=== PATIENT | female | born 1995 | race Asian ===

== ENCOUNTER 2024-04-06 16:55 | Inpatient (IN) ==
[2024-04-06] MEDS ORDERED: LIDOCAINE 1% LOCAL 20 ML VIAL INFIL PRN (17:02)
[2024-04-06] MEDS ORDERED: OXYTOCIN 30 UNITS/NSS 30 UNITS/500 ML BAG IV PRN (17:02)
[2024-04-06 17:49] LABS: Hematocrit (blood only) 36.1 % (37.0-47.0); Hemoglobin 12.8 g/dl (12.0-16.0); Mean Corpuscular Hemoglobin 30.7 pg (25.0-34.0); Mean Corpuscular Hgb Conc 35.5 g/dL (32.0-36.0); Mean Corpuscular Volume 86.6 fL (80.0-100.0); Mean Platelet Volume 10.8 fL (9.4-12.4); Platelet Count 208 K/uL (130-400); RDW Coefficient of Variation 14.2 % (11.5-14.5); RDW Standard Deviation 44.1 fL (36.4-46.3); Red Blood Count 4.17 M/uL (4.20-5.40); White Blood Count 7.52 K/ul (4.8-10.8)
[2024-04-06] MEDS: LACTATED RINGER'S 1,000 ML IV PRN (18:00)
--- NOTE | 2024-04-06 19:40 | History & Physical Report ---
Date of Service April 06, 2024 Assessment & Plan (1) SROM (spontaneous rupture of membranes): (2) Gestational diabetes mellitus (GDM) affecting , antepartum: (3) Fibroid uterus: Plan 28 yo G1 at 39 3/7 wga presents w/ srom VSS Fetus cat 1 Labor - will start with cervical ripening given only 1cm with cytotec A1GDM - q4bg gbs neg epidural prn Admission and Anticipated Discharge Date Admission Date: April 06, 2024 History of Present Illness Chief Complaint: SROM Primary Care Provider: NO PCP 28yo G1 at 39 3/7 wga presents after dx w/ SROM. Lost mucous plug around 7am and then leaking consistently starting around 10-11am. Seen in office and rom confirmed, 1cm at that time. irreg ctx, not painful PNI: A1GDM Ant SS fibroid Past rn heart hx: G1 regular cycles denies hx stis 2023 neg cyto Allergies Allergy/AdvReac Type Severity Reaction Status Date / Time kiwi Allergy Swelling Verified 04/06/24 17:40 of Lip/Tongue/Throat shrimp Allergy Hives Verified 04/06/24 17:40 cactus pear Allergy Swelling Uncoded 04/06/24 17:40 of Lip/Tongue/Throat Home Medications Medication Instructions Recorded Confirmed Type 21-iron fu-folic acid 1 tab PO DAILY 09/04/23 04/06/24 History [ Complete] acetone (urine) test (Ketone Urine #50 ea 11/17/23 04/06/24 Rx Test strips) blood sugar diagnostic (OneTouch #150 ea 11/17/23 04/06/24 Rx Verio test strips) blood-glucose meter (OneTouch #1 ea 11/17/23 04/06/24 Rx Verio Reflect Meter) lancets 33 gauge (OneTouch Delica #150 ea 11/17/23 04/06/24 Rx Plus Lancet) Patient History Medical History (Updated 04/06/24 @ 19:39 by Chiquita Levy MD) Varicella vaccination Surgical History (Updated 09/04/23 @ 11:01 by Tory Villanueva) S/P wisdom tooth extraction Family History (Updated 09/04/23 @ 10:53 by Tory Villanueva) Mother Hypertension Denies family history of Ovarian cancer Breast cancer Colorectal cancer Social History (Updated 09/04/23 @ 10:54 by Tory Villanueva) Smoking Status: Never smoker Do You Dip or Chew Tobacco: No; Hx Alcohol Use: No Hx Substance Use: No Preferred Language: French Communication Ability: Effective 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: No Beliefs That Will Affect Care: None marital status: marital status details: Larry Lees (29) [phone] Current Living Situation: Spouse Current Living Situation Comment: lives with spouse, guinea pig current occupational status: employed 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 Feels Safe at Home: Yes Safety Concerns: Feels Safe At This Time Assistive Devices: None Physical Exam Genitourinary: OB Exam Abdomen: + vertex (confirmed by bsus) Manual OB Exam: + cervical dilation 1 cm, + cervical effacement 50% and + station -2 OB Exam Monitor Tracing: + external FHT monitor used, + external uterine monitor used (irreg ctx, >10 min) and + category I (145/mod/+accel/-decel) Results & Data Vital Signs (Past 12 Hours) Vital Signs Temp Pulse Resp BP 04/06/24 18:12 73 04/06/24 18:12 147/75 H 04/06/24 17:37 97.5 F L 20 04/06/24 17:25 90 137/87 Laboratory Results OB Labs: Blood Type A Positive 09/08/23 Antibody Screen NEGATIVE 09/08/23 Hemoglobin 11.8 g/dl (12.0-16.0) L 01/20/24 Hematocrit 35.0 % (37.0-47.0) L 01/20/24 Mean Corpuscular Volume 87.4 fL (80.0-100.0) 09/08/23 Platelet Count 325 K/uL (130-400) 09/08/23 Rubella IgG Antibody Immune (Immune) 09/08/23 Rapid Plasma Reagin Nonreactive (Nonreactive) 09/08/23 Hepatitis B Surface Antigen. NON-REACTIVE (NON-REACTIVE) 09/08/23 Hepatitis C Antibody (EIA) NON-REACTIVE (NON-REACTIVE) 09/08/23 HIV (1&2) Ag and Ab Confirmation NON-REACTIVE (NON-REACTIVE) 09/08/23 Glucose 1 Hour 50 gm Load 136 mg/dl (70-130) H 10/26/23 OB Optional Labs: Chlamydia trachomatis RNA Not Detected (NotDetected) 09/08/23 Neisseria gonorrhoeae RNA Not Detected (NotDetected) 09/08/23 low risk cfdna neg cf/sma gbs neg Diagnostic Findings 03/14 EFW 69%, AC 68%, DVP wnl, ant plac Coding Level of Care Code None Diagnoses SROM (spontaneous rupture of membranes) Gestational diabetes mellitus (GDM) affecting , antepartum O24.419 Fibroid uterus D25.9
[2024-04-06] MEDS: miSOPROStoL 25 MCG TAB PV ONE (20:10)
--- NOTE | 2024-04-07 00:05 | Labor Progress Brief Note ---
Date of Service April 07, 2024 Subjective starting to feel more ctx but not very painful Assessment & Plan (1) SROM (spontaneous rupture of membranes): (2) Gestational diabetes mellitus (GDM) affecting , antepartum: (3) Fibroid uterus: Plan 28 yo G1 at 39 3/7 wga presents w/ srom VSS Fetus cat 1 Labor - cervix more anterior and slightly more dilated, will start pit. ?if I feel forebag as still only 2, once more dilated may be able to rupture forebag if there A1GDM - q4bg gbs neg epidural prn Admission and Anticipated Discharge Date Admission Date: April 06, 2024 Physical Exam Genitourinary: Manual OB Exam: + cervical dilation 2 cm, + cervical effacement 50% and + station -2 OB Exam Monitor Tracing: + external FHT monitor used, + external uterine monitor used (q6-8) and + category I (110/mod/+accel/-decel) Results & Data Vital Signs (Past 12 Hours) Vital Signs Temp Pulse Resp BP 04/06/24 21:38 63 04/06/24 21:38 133/87 04/06/24 21:37 63 04/06/24 21:37 146/93 H 04/06/24 21:36 65 04/06/24 21:36 158/100 H 04/06/24 21:15 20 04/06/24 21:15 98.1 F 20 04/06/24 19:10 18 04/06/24 19:10 98.2 F 18 04/06/24 18:12 73 04/06/24 18:12 147/75 H 04/06/24 17:37 97.5 F L 20 04/06/24 17:25 90 137/87 Coding Level of Care Code None Diagnoses SROM (spontaneous rupture of membranes) Gestational diabetes mellitus (GDM) affecting , antepartum O24.419 Fibroid uterus D25.9
[2024-04-07] MEDS: OXYTOCIN 30 UNITS/NSS 30 UNITS/500 ML BAG IV PRN (00:15)
[2024-04-07] MEDS ORDERED: ROPIVACAINE 0.5% PF 5 MG/ML 20 ML VIAL EPI PRN (03:37)
[2024-04-07] MEDS ORDERED: NALOXONE HCL 0.4 MG/1 ML VIAL/CARP IV PRN ×2 (03:37→23:33)
[2024-04-07] MEDS ORDERED: SODIUM CHLORIDE 0.9% PF INJ 10 ML VIAL EPI PRN (03:37)
[2024-04-07] MEDS ORDERED: NALOXONE HCL 1 MG in SODIUM CHLORIDE 0.9% 1,000 ML IV PRN ×2 (03:37→23:33)
[2024-04-07] MEDS ORDERED: NALBUPHINE HCL INJ 10 MG/ML AMP IV PRN ×2 (03:37→23:33)
[2024-04-07] MEDS ORDERED: fentaNYL citrate PF 100 MCG/2 ML VIAL EPI PRN (03:37)
[2024-04-07] MEDS ORDERED: LIDOCAINE 2% MPF LOCAL 5 ML VIAL EPI PRN (03:37)
[2024-04-07] MEDS ORDERED: ePHEDrine sulfate 50 MG/ML AMP IV PRN ×2 (03:37→23:33)
[2024-04-07] MEDS ORDERED: ONDANSETRON INJ 2 MG/ML 2 ML VIAL IV PRN ×2 (03:37→23:33)
[2024-04-07] MEDS ORDERED: diphenhydrAMINE 50 MG/ML VIAL IV PRN ×2 (03:37→23:33)
[2024-04-07] MEDS ORDERED: BUPIVACAINE 0.25% PF 30 ML VIAL EPI PRN (03:37)
--- NOTE | 2024-04-07 03:37 | Anesthesiology Consultation ---
Date of Service April 07, 2024 Assessment & Plan ASA ASA2 Proposed Anesthesia Anesthesia Type: Labor Epidural Risk / Benefits Reviewed With: PT / POA / Parent / Guardian, Accepts Plan and Informed Consent Obtained History Height/Weight Height: 5 ft Weight: 85.275 kg Allergies Allergy/AdvReac Type Severity Reaction Status Date / Time kiwi Allergy Swelling Verified 04/06/24 17:40 of Lip/Tongue/Throat shrimp Allergy Hives Verified 04/06/24 17:40 cactus pear Allergy Swelling Uncoded 04/06/24 17:40 of Lip/Tongue/Throat Medications Home Medications Medication Instructions Recorded Confirmed Last Taken 21-iron fu-folic acid 1 tab PO DAILY 09/04/23 04/06/24 04/06/24 12:30 [ Complete] acetone (urine) test (Ketone Urine #50 ea 11/17/23 04/06/24 Unknown Test strips) blood sugar diagnostic (OneTouch #150 ea 11/17/23 04/06/24 Unknown Verio test strips) blood-glucose meter (OneTouch #1 ea 11/17/23 04/06/24 Unknown Verio Reflect Meter) lancets 33 gauge (OneTouch Delica #150 ea 11/17/23 04/06/24 Unknown Plus Lancet) Active Medications Generic Name Dose Route Start Last Admin Trade Name Freq PRN Reason Stop Dose Admin Oxytocin 30 units in 500 mls @ 6 mls/hr 04/06/24 17:02 04/07/24 02:30 Pitocin 30 Units/Nss IV 04/08/24 17:01 0.36 units/hr .Q24H PRN 6 mls/hr Labor Induction/Augmentation Titration Protocol 0.36 UNITS/HR Lactated Ringer's 1,000 mls @ 125 mls/hr 04/06/24 17:02 04/07/24 01:01 Lr IV 04/08/24 17:01 125 mls/hr .Q8H PRN Administration L&D Protocol Protocol Past Medical History Medical History (Updated 04/06/24 @ 19:39 by Chiquita Levy MD) Varicella vaccination Exercise / Class Metabolic Activity II 4-5 Yardwork/Stairs/Walk up hill Past Family History Family History (Updated 09/04/23 @ 10:53 by Tory Villanueva) Mother Hypertension Denies family history of Ovarian cancer Breast cancer Colorectal cancer Past Surgical History Surgical History (Updated 09/04/23 @ 11:01 by Tory Villanueva) S/P wisdom tooth extraction Past Anesthesia History No Hx of Anesthesia Complications and No Family Hx of Anesthesia Complications History of PONV No Hx of PONV and No Hx of Motion Sickness Social History Smoking Status: Never smoker Do You Dip or Chew Tobacco: No Hx Alcohol Use: No Hx Substance Use: No Review of Systems denies fever/cough/ colds/ chest pain/ SOB/ JANI denies JANI Physical Exam Vital Signs Last Vital Signs Temp 36.8 C 04/07/24 01:01 Pulse 64 04/07/24 03:35 Resp 20 04/07/24 01:01 BP 171/97 H 04/07/24 03:35 Pulse Ox 100 04/07/24 03:33 ENMT Mouth: no TMJ abnormality and no dentition abnormality Thyromental Distance: > or= 3.5 Finger Breadths Mallampati Class: II Neck neck extension not limited Respiratory normal respiratory effort; no respiratory distress Auscultation: lungs clear to auscultation bilaterally Cardiovascular Rate/Rhythm: regular rate and regular rhythm Neurologic moves all extremities Psychiatric Orientation: alert and oriented x 3 Testing Laboratory Results 04/06/24 17:32 Blood Type A Positive 04/06/24 17:32 Antibody Screen NEGATIVE 04/06/24 17:32 04/07/24 04/06/24 01:17 21:16 POC Glucose 91 93
[2024-04-07] MEDS: BUPIVACAINE 0.25% PF 30 ML VIAL ONE (04:01)
[2024-04-07] MEDS: fentaNYL citrate PF 100 MCG/2 ML VIAL ONE (04:02)
[2024-04-07] MEDS: SODIUM CHLORIDE 0.9% PF INJ 10 ML VIAL ONE (04:03)
[2024-04-07] MEDS: fentANYL 2 MCG/ML BUPIVacaine 0.125%-NSS 100ML BAG ONE (04:05)
[2024-04-07] MEDS: LIDOCAINE 2%/EPINEPHRINE 1:200,000 20 ML PF ONE (04:10)
[2024-04-07] MEDS: ePHEDrine sulfate 50 MG/ML AMP ONE (04:10)
[2024-04-07] MEDS: SODIUM CHLORIDE 0.9% PF INJ 10 ML VIAL EPI STA (04:11)
[2024-04-07] MEDS: fentaNYL citrate PF 100 MCG/2 ML VIAL EPI STA (04:11)
[2024-04-07] MEDS: BUPIVACAINE 0.25% PF 30 ML VIAL EPI STA (04:11)
[2024-04-07] MEDS: LIDOCAINE 2%/EPINEPHRINE 1:200,000 20 ML PF EPI STA (04:11)
[2024-04-07 04:16] LABS: Creatinine Urine Random 142.1 mg/dl; Protein Creatinine Ratio Urine 0.4 (0-0.2); Total Protein Urine Random 58.2 mg/dl (0-11.9)
[2024-04-07 04:16] LABS: Albumin Globulin Ratio 1.2 (0.9-2); Albumin Level 3.3 gm/dl (3.4-5.0); BUN Creatinine Ratio 19.3 (10-20); Bilirubin,Total 0.3 mg/dl (0.2-1.0); Calcium 8.4 mg/dl (8.6-10.3); Creatinine Clr Calc Pharmacy 139.9 ml/min; Est GFR (African American) 144.2 ml/min; Est GFR (Non-African American) 124.4 ml/min; Globulin 2.7 gm/dl (2.5-4.0); Potassium 3.9 mmol/L (3.5-5.1)
--- NOTE | 2024-04-07 07:37 | Labor Progress Brief Note ---
Date of Service April 07, 2024 Subjective comfortable w/ epidural Assessment & Plan (1) SROM (spontaneous rupture of membranes): (2) Gestational diabetes mellitus (GDM) affecting , antepartum: (3) Fibroid uterus: Plan 28 yo G1 at 39 3/7 wga presents w/ srom Few mild ranges noted but asymptomatic, there is occ severe range in chart but nurse notes she was laying on cuff during these so not accurate. PET labs wnl, UPC was obtained but not a straight cath and already srom so not sure if falsely elevated- will recheck w/ straight cath. I think gHTN at minimum as mild ranges still occur when not in pain but intermittent Fetus cat 1 Labor - good progress, forebag noted and arom. Pit at 14. A1GDM - q4bg gbs neg epidural in place Admission and Anticipated Discharge Date Admission Date: April 06, 2024 Physical Exam Genitourinary: Manual OB Exam: + cervical dilation 5 cm, + cervical effacement 70%, + station and + amniotic fluid (arom forebag) OB Exam Monitor Tracing: + external FHT monitor used, + external uterine monitor used (q6-8) and + category II (140/mod/+accel/+early and intermit variable decel) Results & Data Vital Signs (Past 12 Hours) Vital Signs Temp Pulse Resp BP Pulse Ox 04/07/24 07:29 67 98 04/07/24 07:24 66 99 04/07/24 07:20 98.2 F 18 04/07/24 07:19 63 98 04/07/24 07:14 99 04/07/24 07:14 63 04/07/24 07:14 63 143/95 H 04/07/24 07:08 86 98 04/07/24 07:03 67 99 04/07/24 06:58 70 100 04/07/24 06:57 64 160/91 H 04/07/24 06:53 68 98 04/07/24 06:48 61 100 04/07/24 06:46 18 04/07/24 06:46 18 04/07/24 06:43 64 99 04/07/24 06:41 65 139/89 04/07/24 06:38 63 98 04/07/24 06:33 65 100 04/07/24 06:31 16 04/07/24 06:31 16 04/07/24 06:28 59 L 100 04/07/24 06:26 60 139/90 04/07/24 06:23 81 98 04/07/24 06:18 63 100 04/07/24 06:15 18 04/07/24 06:15 18 04/07/24 06:13 61 99 04/07/24 06:11 65 134/78 04/07/24 06:08 63 98 04/07/24 06:03 65 97 04/07/24 05:58 62 99 04/07/24 05:57 63 149/82 H 04/07/24 05:53 63 18 98 04/07/24 05:48 67 97 04/07/24 05:43 61 99 04/07/24 05:42 61 137/78 04/07/24 05:38 64 99 04/07/24 05:33 65 99 04/07/24 05:32 18 04/07/24 05:32 97.9 F 18 04/07/24 05:28 68 99 04/07/24 05:26 63 136/84 04/07/24 05:23 70 99 04/07/24 05:20 16 04/07/24 05:20 16 04/07/24 05:18 63 98 04/07/24 05:13 64 99 04/07/24 05:11 67 142/85 H 04/07/24 05:09 18 04/07/24 05:09 18 04/07/24 05:08 64 98 04/07/24 05:03 64 98 04/07/24 04:58 72 99 04/07/24 04:56 63 140/88 04/07/24 04:53 64 100 04/07/24 04:50 20 04/07/24 04:50 20 04/07/24 04:48 69 99 04/07/24 04:43 69 100 04/07/24 04:41 60 148/86 H 04/07/24 04:38 65 100 04/07/24 04:33 83 100 04/07/24 04:28 69 100 04/07/24 04:25 72 155/90 H 04/07/24 04:23 69 100 04/07/24 04:21 67 151/90 H 04/07/24 04:18 70 99 04/07/24 04:15 71 18 138/92 04/07/24 04:13 68 100 04/07/24 04:08 75 150/93 H 98 04/07/24 04:07 67 133/91 04/07/24 04:05 67 140/66 04/07/24 04:03 68 100 04/07/24 04:02 62 150/95 H 04/07/24 04:01 69 155/93 H 04/07/24 03:58 78 99 04/07/24 03:53 72 99 04/07/24 03:50 73 86 L 04/07/24 03:48 71 100 04/07/24 03:43 75 100 04/07/24 03:42 73 90 04/07/24 03:38 99 04/07/24 03:38 67 04/07/24 03:38 64 172/77 H 04/07/24 03:36 18 04/07/24 03:36 97.9 F 18 04/07/24 03:35 64 171/97 H 04/07/24 03:33 67 100 04/07/24 03:32 64 183/102 H 04/07/24 01:15 64 143/95 H 04/07/24 01:01 20 04/07/24 01:01 98.2 F 20 04/07/24 01:00 61 146/93 H 04/06/24 23:15 18 04/06/24 23:15 98.2 F 18 04/06/24 21:38 63 04/06/24 21:38 133/87 04/06/24 21:37 63 04/06/24 21:37 146/93 H 04/06/24 21:36 65 04/06/24 21:36 158/100 H 04/06/24 21:15 20 04/06/24 21:15 98.1 F 20 Coding Level of Care Code None Diagnoses SROM (spontaneous rupture of membranes) Gestational diabetes mellitus (GDM) affecting , antepartum O24.419 Fibroid uterus D25.9
[2024-04-07] MEDS: fentANYL 2 MCG/ML BUPIVacaine 0.125%-NSS 100ML BAG EPI PRN (10:16)
--- NOTE | 2024-04-07 12:06 | Obstetrical Progress Note ---
Date of Service April 07, 2024 Assessment & Plan (1) SROM (spontaneous rupture of membranes): (2) Gestational diabetes mellitus (GDM) affecting , antepartum: Plan making slow progress, fetus overall reassuring. NOting some heavier bleeding but not excessive and fetus tolerating. Continue current management. Monitor closely. Admission and Anticipated Discharge Date Admission Date: April 06, 2024 Subjective Patient noting contractions. Physical Exam Physical Exam: 8/100/-2, lots of bloody show and a smal l clot removed toco--q2min, pit at 14 efm--130s with mod variability, small accesl, occasional early appearing decel Results & Data Vital Signs (Past 12 Hours) Vital Signs Temp Pulse Resp BP Pulse Ox 04/07/24 11:59 69 99 04/07/24 11:54 71 100 04/07/24 11:49 69 99 04/07/24 11:44 71 99 04/07/24 11:39 70 98 04/07/24 11:37 63 153/86 H 04/07/24 11:34 70 99 04/07/24 11:29 73 99 04/07/24 11:24 68 100 04/07/24 11:23 71 162/100 H 04/07/24 11:19 69 100 04/07/24 11:14 71 100 04/07/24 11:09 68 100 04/07/24 11:08 70 159/97 H 04/07/24 11:04 66 100 04/07/24 10:59 79 99 04/07/24 10:55 65 154/84 H 04/07/24 10:54 65 99 04/07/24 10:49 68 99 04/07/24 10:44 67 100 04/07/24 10:39 70 155/84 H 99 04/07/24 10:34 70 100 04/07/24 10:30 18 04/07/24 10:30 18 04/07/24 10:29 71 99 04/07/24 10:24 64 99 04/07/24 10:23 67 137/86 04/07/24 10:19 69 99 04/07/24 10:14 65 99 04/07/24 10:09 62 98 04/07/24 10:08 61 142/81 H 04/07/24 10:04 69 99 04/07/24 10:00 36.6 C 04/07/24 09:59 67 98 04/07/24 09:54 99 04/07/24 09:54 65 04/07/24 09:54 65 137/81 04/07/24 09:49 66 98 04/07/24 09:44 66 99 04/07/24 09:39 68 99 04/07/24 09:38 69 141/84 H 04/07/24 09:34 69 99 04/07/24 09:30 18 04/07/24 09:30 18 04/07/24 09:29 69 100 04/07/24 09:24 99 04/07/24 09:24 74 04/07/24 09:24 71 140/93 04/07/24 09:19 68 99 04/07/24 09:14 70 100 04/07/24 09:09 70 176/100 H 98 04/07/24 09:04 69 99 04/07/24 08:59 73 99 04/07/24 08:54 66 100 04/07/24 08:53 66 169/94 H 04/07/24 08:49 66 98 04/07/24 08:44 65 99 04/07/24 08:39 70 99 04/07/24 08:34 80 98 04/07/24 08:29 72 98 04/07/24 08:24 75 98 04/07/24 08:23 67 144/94 H 04/07/24 08:19 68 95 04/07/24 08:14 66 96 04/07/24 08:09 97 04/07/24 08:09 66 04/07/24 08:09 65 142/87 H 04/07/24 08:04 62 97 04/07/24 08:00 18 04/07/24 08:00 18 04/07/24 07:59 61 99 04/07/24 07:54 64 97 04/07/24 07:53 59 L 139/84 04/07/24 07:49 61 96 04/07/24 07:44 62 98 04/07/24 07:39 98 04/07/24 07:39 62 04/07/24 07:39 62 151/87 H 04/07/24 07:34 62 99 04/07/24 07:29 67 98 04/07/24 07:24 66 99 04/07/24 07:20 36.8 C 18 04/07/24 07:19 63 98 04/07/24 07:14 18 04/07/24 07:14 36.7 C 18 04/07/24 07:14 99 04/07/24 07:14 63 04/07/24 07:14 63 143/95 H 04/07/24 07:08 86 98 04/07/24 07:03 67 99 04/07/24 06:58 70 100 04/07/24 06:57 64 160/91 H 04/07/24 06:53 68 98 04/07/24 06:48 61 100 04/07/24 06:46 18 04/07/24 06:46 18 04/07/24 06:43 64 99 04/07/24 06:41 65 139/89 04/07/24 06:38 63 98 04/07/24 06:33 65 100 04/07/24 06:31 16 04/07/24 06:31 16 04/07/24 06:28 59 L 100 04/07/24 06:26 60 139/90 04/07/24 06:23 81 98 04/07/24 06:18 63 100 04/07/24 06:15 18 04/07/24 06:15 18 04/07/24 06:13 61 99 04/07/24 06:11 65 134/78 04/07/24 06:08 63 98 04/07/24 06:03 65 97 04/07/24 05:58 62 99 04/07/24 05:57 63 149/82 H 04/07/24 05:53 63 18 98 04/07/24 05:48 67 97 04/07/24 05:43 61 99 04/07/24 05:42 61 137/78 04/07/24 05:38 64 99 04/07/24 05:33 65 99 04/07/24 05:32 18 04/07/24 05:32 36.6 C 18 04/07/24 05:28 68 99 04/07/24 05:26 63 136/84 04/07/24 05:23 70 99 04/07/24 05:20 16 04/07/24 05:20 16 04/07/24 05:18 63 98 04/07/24 05:13 64 99 04/07/24 05:11 67 142/85 H 04/07/24 05:09 18 04/07/24 05:09 18 04/07/24 05:08 64 98 04/07/24 05:03 64 98 04/07/24 04:58 72 99 04/07/24 04:56 63 140/88 04/07/24 04:53 64 100 04/07/24 04:50 20 04/07/24 04:50 20 04/07/24 04:48 69 99 04/07/24 04:43 69 100 04/07/24 04:41 60 148/86 H 04/07/24 04:38 65 100 04/07/24 04:33 83 100 04/07/24 04:28 69 100 04/07/24 04:25 72 155/90 H 04/07/24 04:23 69 100 04/07/24 04:21 67 151/90 H 04/07/24 04:18 70 99 04/07/24 04:15 71 18 138/92 04/07/24 04:13 68 100 04/07/24 04:08 75 150/93 H 98 04/07/24 04:07 67 133/91 04/07/24 04:05 67 140/66 04/07/24 04:03 68 100 04/07/24 04:02 62 150/95 H 04/07/24 04:01 69 155/93 H 04/07/24 03:58 78 99 04/07/24 03:53 72 99 04/07/24 03:50 73 86 L 04/07/24 03:48 71 100 04/07/24 03:43 75 100 04/07/24 03:42 73 90 04/07/24 03:38 99 04/07/24 03:38 67 04/07/24 03:38 64 172/77 H 04/07/24 03:36 18 04/07/24 03:36 36.6 C 18 04/07/24 03:35 64 171/97 H 04/07/24 03:33 67 100 04/07/24 03:32 64 183/102 H 04/07/24 01:15 64 143/95 H 04/07/24 01:01 20 04/07/24 01:01 36.8 C 20 04/07/24 01:00 61 146/93 H PG Care Time/CCT Total # of Minutes Spent Total Time Spent with Patient: Total time spent is greater than 50% in coordination of care (as documented) at patient's floor/unit and/or counseling patient: Coding Level of Care Code None Diagnoses SROM (spontaneous rupture of membranes) Gestational diabetes mellitus (GDM) affecting , antepartum O24.419
--- NOTE | 2024-04-07 14:01 | Labor Progress Brief Note ---
Date of Service April 07, 2024 Subjective Pretty comfortable with epidural. Assessment & Plan (1) SROM (spontaneous rupture of membranes): (2) Gestational diabetes mellitus (GDM) affecting , antepartum: Plan concern with lack of further dilation and no descent that we have a CPD issue. Will see how her contractions do at this point. fetus category one. Admission and Anticipated Discharge Date Admission Date: April 06, 2024 Physical Exam Physical Exam: 8-9/100/-2 baby not descending at all toco--q1-3 min, with pit at 14 iupc placed efm--130s with mod variability, accels present, occasional early noted Contractions on initial observation, look like they are going to be adequate. Results & Data Vital Signs (Past 12 Hours) Vital Signs Temp Pulse Resp BP Pulse Ox 04/07/24 13:54 74 98 04/07/24 13:49 79 100 04/07/24 13:44 77 99 04/07/24 13:39 73 100 04/07/24 13:34 68 99 04/07/24 13:29 66 99 04/07/24 13:24 79 100 04/07/24 13:23 59 L 130/81 04/07/24 13:19 60 98 04/07/24 13:14 60 98 04/07/24 13:09 67 98 04/07/24 13:08 57 L 149/72 H 04/07/24 13:04 65 98 04/07/24 12:59 59 L 98 04/07/24 12:55 71 142/86 H 04/07/24 12:54 76 100 04/07/24 12:49 67 100 04/07/24 12:44 68 100 04/07/24 12:39 99 04/07/24 12:39 67 04/07/24 12:39 62 152/85 H 04/07/24 12:34 71 99 04/07/24 12:29 74 100 04/07/24 12:24 75 138/91 99 04/07/24 12:19 71 99 04/07/24 12:14 69 100 04/07/24 12:09 66 150/92 H 99 04/07/24 12:04 69 100 04/07/24 11:59 69 99 04/07/24 11:54 71 100 04/07/24 11:49 69 99 04/07/24 11:44 71 99 04/07/24 11:39 70 98 04/07/24 11:37 63 153/86 H 04/07/24 11:34 70 99 04/07/24 11:29 73 99 04/07/24 11:24 68 100 04/07/24 11:23 71 162/100 H 04/07/24 11:19 69 100 04/07/24 11:14 71 100 04/07/24 11:09 68 100 04/07/24 11:08 70 159/97 H 04/07/24 11:04 66 100 04/07/24 10:59 79 99 04/07/24 10:55 65 154/84 H 04/07/24 10:54 65 99 04/07/24 10:49 68 99 04/07/24 10:44 67 100 04/07/24 10:39 70 155/84 H 99 04/07/24 10:34 70 100 04/07/24 10:30 18 04/07/24 10:30 18 04/07/24 10:29 71 99 04/07/24 10:24 64 99 04/07/24 10:23 67 137/86 04/07/24 10:19 69 99 04/07/24 10:14 65 99 04/07/24 10:09 62 98 04/07/24 10:08 61 142/81 H 04/07/24 10:04 69 99 04/07/24 10:00 36.6 C 04/07/24 09:59 67 98 04/07/24 09:54 99 04/07/24 09:54 65 04/07/24 09:54 65 137/81 04/07/24 09:49 66 98 04/07/24 09:44 66 99 04/07/24 09:39 68 99 04/07/24 09:38 69 141/84 H 04/07/24 09:34 69 99 04/07/24 09:30 18 04/07/24 09:30 18 04/07/24 09:29 69 100 04/07/24 09:24 99 04/07/24 09:24 74 04/07/24 09:24 71 140/93 04/07/24 09:19 68 99 04/07/24 09:14 70 100 04/07/24 09:09 70 176/100 H 98 04/07/24 09:04 69 99 04/07/24 08:59 73 99 04/07/24 08:54 66 100 04/07/24 08:53 66 169/94 H 04/07/24 08:49 66 98 04/07/24 08:44 65 99 04/07/24 08:39 70 99 04/07/24 08:34 80 98 04/07/24 08:29 72 98 04/07/24 08:24 75 98 04/07/24 08:23 67 144/94 H 04/07/24 08:19 68 95 04/07/24 08:14 66 96 04/07/24 08:09 97 04/07/24 08:09 66 04/07/24 08:09 65 142/87 H 04/07/24 08:04 62 97 04/07/24 08:00 18 04/07/24 08:00 18 04/07/24 07:59 61 99 04/07/24 07:54 64 97 04/07/24 07:53 59 L 139/84 04/07/24 07:49 61 96 04/07/24 07:44 62 98 04/07/24 07:39 98 04/07/24 07:39 62 04/07/24 07:39 62 151/87 H 04/07/24 07:34 62 99 04/07/24 07:29 67 98 04/07/24 07:24 66 99 04/07/24 07:20 36.8 C 18 04/07/24 07:19 63 98 04/07/24 07:14 18 04/07/24 07:14 36.7 C 18 04/07/24 07:14 99 04/07/24 07:14 63 04/07/24 07:14 63 143/95 H 04/07/24 07:08 86 98 04/07/24 07:03 67 99 04/07/24 06:58 70 100 04/07/24 06:57 64 160/91 H 04/07/24 06:53 68 98 04/07/24 06:48 61 100 04/07/24 06:46 18 04/07/24 06:46 18 04/07/24 06:43 64 99 04/07/24 06:41 65 139/89 04/07/24 06:38 63 98 04/07/24 06:33 65 100 04/07/24 06:31 16 04/07/24 06:31 16 04/07/24 06:28 59 L 100 04/07/24 06:26 60 139/90 04/07/24 06:23 81 98 04/07/24 06:18 63 100 04/07/24 06:15 18 04/07/24 06:15 18 04/07/24 06:13 61 99 04/07/24 06:11 65 134/78 04/07/24 06:08 63 98 04/07/24 06:03 65 97 04/07/24 05:58 62 99 04/07/24 05:57 63 149/82 H 04/07/24 05:53 63 18 98 04/07/24 05:48 67 97 04/07/24 05:43 61 99 04/07/24 05:42 61 137/78 04/07/24 05:38 64 99 04/07/24 05:33 65 99 04/07/24 05:32 18 04/07/24 05:32 36.6 C 18 04/07/24 05:28 68 99 04/07/24 05:26 63 136/84 04/07/24 05:23 70 99 04/07/24 05:20 16 04/07/24 05:20 16 04/07/24 05:18 63 98 04/07/24 05:13 64 99 04/07/24 05:11 67 142/85 H 04/07/24 05:09 18 04/07/24 05:09 18 04/07/24 05:08 64 98 04/07/24 05:03 64 98 04/07/24 04:58 72 99 04/07/24 04:56 63 140/88 04/07/24 04:53 64 100 04/07/24 04:50 20 04/07/24 04:50 20 04/07/24 04:48 69 99 04/07/24 04:43 69 100 04/07/24 04:41 60 148/86 H 04/07/24 04:38 65 100 04/07/24 04:33 83 100 04/07/24 04:28 69 100 04/07/24 04:25 72 155/90 H 04/07/24 04:23 69 100 04/07/24 04:21 67 151/90 H 04/07/24 04:18 70 99 04/07/24 04:15 71 18 138/92 04/07/24 04:13 68 100 04/07/24 04:08 75 150/93 H 98 04/07/24 04:07 67 133/91 04/07/24 04:05 67 140/66 04/07/24 04:03 68 100 04/07/24 04:02 62 150/95 H 04/07/24 04:01 69 155/93 H 04/07/24 03:58 78 99 04/07/24 03:53 72 99 04/07/24 03:50 73 86 L 04/07/24 03:48 71 100 04/07/24 03:43 75 100 04/07/24 03:42 73 90 04/07/24 03:38 99 04/07/24 03:38 67 04/07/24 03:38 64 172/77 H 04/07/24 03:36 18 04/07/24 03:36 36.6 C 18 04/07/24 03:35 64 171/97 H 04/07/24 03:33 67 100 04/07/24 03:32 64 183/102 H Coding Level of Care Code None Diagnoses SROM (spontaneous rupture of membranes) Gestational diabetes mellitus (GDM) affecting , antepartum O24.419
--- NOTE | 2024-04-07 18:51 | Labor Progress Brief Note ---
Date of Service April 07, 2024 Subjective comfortable Assessment & Plan (1) SROM (spontaneous rupture of membranes): Plan Has made progress. However, no descent. Will continue as making change. Did discuss that can get anyone to complete but does not mean will push baby out of pelvis. Will recheck in a couple of hours. fetus category one Admission and Anticipated Discharge Date Admission Date: April 06, 2024 Physical Exam Physical Exam: cx--ant lip/-2 toco--q2min, pit at 16, mvus adequate since placement of iupc efm--140s with mod variability, accels to 160s, rare variable Results & Data Vital Signs (Past 12 Hours) Vital Signs Temp Pulse Resp BP Pulse Ox 04/07/24 18:30 18 04/07/24 18:30 18 04/07/24 18:03 72 148/81 H 04/07/24 17:59 82 99 04/07/24 17:55 74 179/103 H 04/07/24 17:54 75 99 04/07/24 17:49 76 99 04/07/24 17:44 75 99 04/07/24 17:39 84 100 04/07/24 17:38 73 182/105 H 04/07/24 17:34 79 99 04/07/24 17:30 18 04/07/24 17:30 18 04/07/24 17:29 76 99 04/07/24 17:24 79 97 04/07/24 17:23 77 159/92 H 04/07/24 17:19 82 99 04/07/24 17:14 81 99 04/07/24 17:09 84 98 04/07/24 17:08 86 143/84 H 04/07/24 17:04 74 99 04/07/24 16:59 76 98 04/07/24 16:54 79 99 04/07/24 16:53 70 145/80 H 04/07/24 16:49 77 100 04/07/24 16:44 76 100 04/07/24 16:39 70 99 04/07/24 16:38 67 146/83 H 04/07/24 16:34 66 99 04/07/24 16:30 18 04/07/24 16:30 18 04/07/24 16:29 71 99 04/07/24 16:24 67 100 04/07/24 16:23 71 156/74 H 04/07/24 16:19 74 100 04/07/24 16:14 79 99 04/07/24 16:09 75 100 04/07/24 16:08 75 150/75 H 04/07/24 16:04 74 100 04/07/24 15:59 75 100 04/07/24 15:54 76 142/90 H 100 04/07/24 15:49 81 100 04/07/24 15:44 79 100 04/07/24 15:39 79 100 04/07/24 15:38 73 148/97 H 04/07/24 15:34 76 99 04/07/24 15:29 76 100 04/07/24 15:24 84 142/91 H 99 04/07/24 15:19 73 98 04/07/24 15:14 105 H 100 04/07/24 15:09 68 98 04/07/24 15:08 72 122/73 04/07/24 15:04 66 99 04/07/24 15:00 18 04/07/24 15:00 18 04/07/24 14:59 78 100 04/07/24 14:54 111 H 99 04/07/24 14:49 82 99 04/07/24 14:44 78 98 04/07/24 14:39 76 98 04/07/24 14:38 68 160/98 H 04/07/24 14:34 78 98 04/07/24 14:29 78 99 04/07/24 14:24 79 98 04/07/24 14:23 73 140/83 04/07/24 14:19 73 99 04/07/24 14:14 77 99 04/07/24 14:09 78 99 04/07/24 14:08 71 171/101 H 04/07/24 14:04 71 99 04/07/24 13:59 88 100 04/07/24 13:54 74 98 04/07/24 13:49 79 100 04/07/24 13:44 77 99 04/07/24 13:39 73 100 04/07/24 13:34 68 99 04/07/24 13:29 66 99 04/07/24 13:27 18 04/07/24 13:27 36.6 C 18 04/07/24 13:24 79 100 04/07/24 13:23 59 L 130/81 04/07/24 13:19 60 98 04/07/24 13:14 60 98 04/07/24 13:09 67 98 04/07/24 13:08 57 L 149/72 H 04/07/24 13:04 65 98 04/07/24 12:59 59 L 98 04/07/24 12:55 71 142/86 H 04/07/24 12:54 76 100 04/07/24 12:49 67 100 04/07/24 12:44 68 100 04/07/24 12:39 99 04/07/24 12:39 67 04/07/24 12:39 62 152/85 H 04/07/24 12:34 71 99 04/07/24 12:29 74 100 04/07/24 12:24 75 138/91 99 04/07/24 12:19 71 99 04/07/24 12:14 69 100 04/07/24 12:09 66 150/92 H 99 04/07/24 12:04 69 100 04/07/24 11:59 69 99 04/07/24 11:54 71 100 04/07/24 11:49 69 99 04/07/24 11:44 71 99 04/07/24 11:39 70 98 04/07/24 11:37 63 153/86 H 04/07/24 11:34 70 99 04/07/24 11:29 73 99 04/07/24 11:24 68 100 04/07/24 11:23 71 162/100 H 04/07/24 11:19 69 100 04/07/24 11:14 71 100 04/07/24 11:09 68 100 04/07/24 11:08 70 159/97 H 04/07/24 11:04 66 100 04/07/24 10:59 79 99 04/07/24 10:55 65 154/84 H 04/07/24 10:54 65 99 04/07/24 10:49 68 99 04/07/24 10:44 67 100 04/07/24 10:39 70 155/84 H 99 04/07/24 10:34 70 100 04/07/24 10:30 18 04/07/24 10:30 18 04/07/24 10:29 71 99 04/07/24 10:24 64 99 04/07/24 10:23 67 137/86 04/07/24 10:19 69 99 04/07/24 10:14 65 99 04/07/24 10:09 62 98 04/07/24 10:08 61 142/81 H 04/07/24 10:04 69 99 04/07/24 10:00 36.6 C 04/07/24 09:59 67 98 04/07/24 09:54 99 04/07/24 09:54 65 04/07/24 09:54 65 137/81 04/07/24 09:49 66 98 04/07/24 09:44 66 99 04/07/24 09:39 68 99 04/07/24 09:38 69 141/84 H 04/07/24 09:34 69 99 04/07/24 09:30 18 04/07/24 09:30 18 04/07/24 09:29 69 100 04/07/24 09:24 99 04/07/24 09:24 74 04/07/24 09:24 71 140/93 04/07/24 09:19 68 99 04/07/24 09:14 70 100 04/07/24 09:09 70 176/100 H 98 04/07/24 09:04 69 99 04/07/24 08:59 73 99 04/07/24 08:54 66 100 04/07/24 08:53 66 169/94 H 04/07/24 08:49 66 98 04/07/24 08:44 65 99 04/07/24 08:39 70 99 04/07/24 08:34 80 98 04/07/24 08:29 72 98 04/07/24 08:24 75 98 04/07/24 08:23 67 144/94 H 04/07/24 08:19 68 95 04/07/24 08:14 66 96 04/07/24 08:09 97 04/07/24 08:09 66 04/07/24 08:09 65 142/87 H 04/07/24 08:04 62 97 04/07/24 08:00 18 04/07/24 08:00 18 04/07/24 07:59 61 99 04/07/24 07:54 64 97 04/07/24 07:53 59 L 139/84 04/07/24 07:49 61 96 04/07/24 07:44 62 98 04/07/24 07:39 98 04/07/24 07:39 62 04/07/24 07:39 62 151/87 H 04/07/24 07:34 62 99 04/07/24 07:29 67 98 04/07/24 07:24 66 99 04/07/24 07:20 36.8 C 18 04/07/24 07:19 63 98 04/07/24 07:14 18 04/07/24 07:14 36.7 C 18 04/07/24 07:14 99 04/07/24 07:14 63 04/07/24 07:14 63 143/95 H 04/07/24 07:08 86 98 04/07/24 07:03 67 99 04/07/24 06:58 70 100 04/07/24 06:57 64 160/91 H 04/07/24 06:53 68 98 Coding Level of Care Code None Diagnoses SROM (spontaneous rupture of membranes)
--- NOTE | 2024-04-07 21:07 | Labor Progress Brief Note ---
Date of Service April 07, 2024 Subjective noting more pain with contractions. bps noted. Assessment & Plan (1) SROM (spontaneous rupture of membranes): Plan Discussed there has essentially been unchanged since for the last two hours. I suspect that we are working with cpd. fetus category one for the most part. Reassuring. Discussed the situation with them and my concern. they would like to labor a little more and ok as long as baby looks ok. Will recheck in one hour. Admission and Anticipated Discharge Date Admission Date: April 06, 2024 Physical Exam Physical Exam: cx--unchanged, ant lip/=2 toco--q2min efm--140s with mod variabiltiy, small accels, early /variable with some contractions. Results & Data Vital Signs (Past 12 Hours) Vital Signs Temp Pulse Resp BP Pulse Ox 04/07/24 21:00 88 98 04/07/24 20:55 77 99 04/07/24 20:52 77 164/91 H 04/07/24 20:50 77 99 04/07/24 20:49 83 192/107 H 04/07/24 20:45 89 99 04/07/24 20:40 81 99 04/07/24 20:35 99 04/07/24 20:35 86 04/07/24 20:35 87 182/104 H 04/07/24 20:30 81 98 04/07/24 20:25 68 98 04/07/24 20:20 71 99 04/07/24 20:19 70 157/77 H 04/07/24 20:15 78 99 04/07/24 20:10 72 99 04/07/24 20:05 82 98 04/07/24 20:04 78 04/07/24 20:04 151/95 H 04/07/24 20:04 78 157/89 H 04/07/24 20:00 85 99 04/07/24 19:55 82 99 04/07/24 19:50 85 167/90 H 100 04/07/24 19:45 83 99 04/07/24 19:40 85 99 04/07/24 19:36 82 160/87 H 04/07/24 19:35 83 98 04/07/24 19:34 86 181/103 H 04/07/24 19:30 93 H 100 04/07/24 19:25 76 99 04/07/24 19:20 81 100 04/07/24 19:15 86 100 04/07/24 19:10 36.8 C 18 04/07/24 19:10 36.8 C 89 18 99 04/07/24 19:05 91 H 99 04/07/24 19:00 96 H 99 04/07/24 18:55 97 H 99 04/07/24 18:50 82 99 04/07/24 18:30 18 04/07/24 18:30 18 04/07/24 18:03 72 148/81 H 04/07/24 17:59 82 99 04/07/24 17:55 74 179/103 H 04/07/24 17:54 75 99 04/07/24 17:49 76 99 04/07/24 17:44 75 99 04/07/24 17:39 84 100 04/07/24 17:38 73 182/105 H 04/07/24 17:34 79 99 04/07/24 17:30 18 04/07/24 17:30 18 04/07/24 17:29 76 99 04/07/24 17:24 79 97 04/07/24 17:23 77 159/92 H 04/07/24 17:19 82 99 04/07/24 17:14 81 99 04/07/24 17:09 84 98 04/07/24 17:08 86 143/84 H 04/07/24 17:04 74 99 04/07/24 16:59 76 98 04/07/24 16:54 79 99 04/07/24 16:53 70 145/80 H 04/07/24 16:49 77 100 04/07/24 16:44 76 100 04/07/24 16:39 70 99 04/07/24 16:38 67 146/83 H 04/07/24 16:34 66 99 04/07/24 16:30 18 04/07/24 16:30 18 04/07/24 16:29 71 99 04/07/24 16:24 67 100 04/07/24 16:23 71 156/74 H 04/07/24 16:19 74 100 04/07/24 16:14 79 99 04/07/24 16:09 75 100 04/07/24 16:08 75 150/75 H 04/07/24 16:04 74 100 04/07/24 15:59 75 100 04/07/24 15:54 76 142/90 H 100 04/07/24 15:49 81 100 04/07/24 15:44 79 100 04/07/24 15:39 79 100 04/07/24 15:38 73 148/97 H 04/07/24 15:34 76 99 04/07/24 15:29 76 100 04/07/24 15:24 84 142/91 H 99 04/07/24 15:19 73 98 04/07/24 15:14 105 H 100 04/07/24 15:09 68 98 04/07/24 15:08 72 122/73 04/07/24 15:04 66 99 04/07/24 15:00 18 04/07/24 15:00 18 04/07/24 14:59 78 100 04/07/24 14:54 111 H 99 04/07/24 14:49 82 99 04/07/24 14:44 78 98 04/07/24 14:39 76 98 04/07/24 14:38 68 160/98 H 04/07/24 14:34 78 98 04/07/24 14:29 78 99 04/07/24 14:24 79 98 04/07/24 14:23 73 140/83 04/07/24 14:19 73 99 04/07/24 14:14 77 99 04/07/24 14:09 78 99 04/07/24 14:08 71 171/101 H 04/07/24 14:04 71 99 04/07/24 13:59 88 100 04/07/24 13:54 74 98 04/07/24 13:49 79 100 04/07/24 13:44 77 99 04/07/24 13:39 73 100 04/07/24 13:34 68 99 04/07/24 13:29 66 99 04/07/24 13:27 18 04/07/24 13:27 36.6 C 18 04/07/24 13:24 79 100 04/07/24 13:23 59 L 130/81 04/07/24 13:19 60 98 04/07/24 13:14 60 98 04/07/24 13:09 67 98 04/07/24 13:08 57 L 149/72 H 04/07/24 13:04 65 98 04/07/24 12:59 59 L 98 04/07/24 12:55 71 142/86 H 04/07/24 12:54 76 100 04/07/24 12:49 67 100 04/07/24 12:44 68 100 04/07/24 12:39 99 04/07/24 12:39 67 04/07/24 12:39 62 152/85 H 04/07/24 12:34 71 99 04/07/24 12:29 74 100 04/07/24 12:24 75 138/91 99 04/07/24 12:19 71 99 04/07/24 12:14 69 100 04/07/24 12:09 66 150/92 H 99 04/07/24 12:04 69 100 04/07/24 11:59 69 99 04/07/24 11:54 71 100 04/07/24 11:49 69 99 04/07/24 11:44 71 99 04/07/24 11:39 70 98 04/07/24 11:37 63 153/86 H 04/07/24 11:34 70 99 04/07/24 11:29 73 99 04/07/24 11:24 68 100 04/07/24 11:23 71 162/100 H 04/07/24 11:19 69 100 04/07/24 11:14 71 100 04/07/24 11:09 68 100 04/07/24 11:08 70 159/97 H 04/07/24 11:04 66 100 04/07/24 10:59 79 99 04/07/24 10:55 65 154/84 H 04/07/24 10:54 65 99 04/07/24 10:49 68 99 04/07/24 10:44 67 100 04/07/24 10:39 70 155/84 H 99 04/07/24 10:34 70 100 04/07/24 10:30 18 04/07/24 10:30 18 04/07/24 10:29 71 99 04/07/24 10:24 64 99 04/07/24 10:23 67 137/86 04/07/24 10:19 69 99 04/07/24 10:14 65 99 04/07/24 10:09 62 98 04/07/24 10:08 61 142/81 H 04/07/24 10:04 69 99 04/07/24 10:00 36.6 C 04/07/24 09:59 67 98 04/07/24 09:54 99 04/07/24 09:54 65 04/07/24 09:54 65 137/81 04/07/24 09:49 66 98 04/07/24 09:44 66 99 04/07/24 09:39 68 99 04/07/24 09:38 69 141/84 H 04/07/24 09:34 69 99 04/07/24 09:30 18 04/07/24 09:30 18 04/07/24 09:29 69 100 04/07/24 09:24 99 04/07/24 09:24 74 04/07/24 09:24 71 140/93 04/07/24 09:19 68 99 04/07/24 09:14 70 100 04/07/24 09:09 70 176/100 H 98 Coding Level of Care Code None Diagnoses SROM (spontaneous rupture of membranes)
[2024-04-07] MEDS ORDERED: LIDOCAINE 2%/EPINEPHRINE 1:200,000 20 ML PF ONE (22:32)
[2024-04-07] MEDS ORDERED: fentaNYL citrate PF 100 MCG/2 ML VIAL ONE (22:32)
[2024-04-07] MEDS ORDERED: OXYTOCIN 10 UNITS/ML VIAL ONE ×3 (22:32)
--- NOTE | 2024-04-07 22:35 | Communication Note ---
Date of Service: April 07, 2024 Rechecked her after another 1+hrs. NO change , has an ant lip that is more swollen and can feel a bit of cervix all the way around. Has made no de scent and still -2 station. Discussed that given this lack of change for almost 4 hours, I believe we have cpd and do not believe further laboring will result in vaginal delivery. She is agreeable to proceeding. consent reviewed and signed. The risks of surgery were discussed with the patient including the risks of anesthesia, bleeding requiring transfusion, infection, poor wound healing, urinary retention, damage to surrounding structures including bowels, bladder, vessels, nerves and ureters that may require further surgery, hospitalization or intervention. The other risks of any surgery were discussed including heart attack, blood clots, stroke or .
[2024-04-07] MEDS: ACETAMINOPHEN 500 MG TAB ONE (22:41)
[2024-04-07] MEDS ORDERED: MoRPHine SULFATE PF 1 MG/ML 10 ML AMP/VIAL ONE (22:47)
[2024-04-07] MEDS: ACETAMINOPHEN 500 MG TAB PO ONE (22:48)
[2024-04-07] MEDS: ceFAZolin 2000MG 2,000 MG/15 ML SYR IV ONE (22:51)
[2024-04-07] MEDS: CITRIC ACID/SODIUM CITRATE 15 ML UDC PO ONE (22:58)
[2024-04-07] MEDS ORDERED: ONDANSETRON INJ 2 MG/ML 2 ML VIAL ONE (23:26)
[2024-04-07] MEDS: CARBOPROST TROMETHAMINE 250 MCG/ML AMPUL IM ONE (23:27)
[2024-04-07] MEDS ORDERED: KETOROLAC 30 MG/ML VIAL IV PRN (23:33)
[2024-04-07] MEDS ORDERED: HYDROmorphone INJ 0.5 MG/0.5 ML SYR IV PRN (23:33)
[2024-04-07] MEDS ORDERED: LACTATED RINGER'S 500 ML IV PRN (23:33)
[2024-04-07] MEDS ORDERED: NALOXONE HCL 0.08 MG in SYRINGE 1.8 ML IV PRN (23:33)
[2024-04-07] MEDS ORDERED: diphenhydrAMINE 50 MG/ML VIAL ONE (23:38)
[2024-04-07] MEDS ORDERED: DC INTRASPINAL MORPHINE SCH (23:45)
[2024-04-07] MEDS ORDERED: NO NARCOTICS OR SEDATIVES SCH (23:45)
[2024-04-07 23:58] LABS: Base Excess Cord Arterial Bld -4.6 mEq/L (-9-1.8); CO2 Cord Arterial Blood 63 mmHg (39.1-73.5); HCO3 Cord Arterial Blood 25 mmol/L (19.7-28.5); Oxygen Sat Cord Arterial Blood < 60.0 % (<60); PO2 Cord Arterial Blood < 20 mmHg (4.1-31.7)
[2024-04-07 23:59] LABS: Base Excess Cord Venous Blood -3.3 mEq/L (-7.7-1.9); Cord Venous Blood HCO3 22 mmol/L (18.4-26.8); Cord Venous Blood PCO2 40 mmHg (30.4-57.2); Cord Venous Blood PO2 39 mmHg (14.1-43.3); Cord Venous Blood pH 7.35 (7.20-7.44); O2 Saturation Cord Venous Bld 73.1 % (<68)
--- NOTE | 2024-04-08 00:11 | Operative Report ---
[facility] Post Operative Report Pre & Post Diagnosis Operation Date: 04/07/24 23:00 Pre-Op Diagnosis: 1. at 39 4/7 weeks 2. Failure to progress 3. Failure to descend Post-Op Diagnosis: same as preop I identified the patient and participated in the time-out.: Yes Procedure Operation Date: 04/07/24 23:00 Actual Procedures p Primary low transverse Section in for delivery of live male infant at 2323 - Frida Manzo MD, FACOG Surgeon Frida Manzo MD, FACOG Sustainability Engineer Shea Best RN Estimated Blood Loss 1,884 Findings Consistent with Post-Op Diagnosis viable male in cephalic presentation, apgars 8/9, pedunculated fibroid coming from the posterior uterine fundus. nl appearing tubes and ovaries Fluids ivf--1000cc uop--30cc blood tinged urine (urine was blood tinged prior to the OR) Specimens none Drains edmondson Anesthesia Type L&D Only Epidural Exists Complications none Disposition Accompanied Patient To Recovery: Yes Disposition: L&D Indications 28yowf with iup at 39 5/7 weeks , c/s for ftd/ftp. Was 9cm and -2 station for 4+hours Description of Procedure The patient was taken to the operating room where she was identified verbally and by bracelet. She was then placed in the supine position with a leftward tilt. A Edmondson catheter had previously been placed sterilely. The epidural had been dosed by anesthesia the patient was prepped and draped in a normal standard fashion. the anesthetic was tested and found to be adequate. A time-out was held, identifying correct patient, procedure, positioning and preoperative antibiotics. There were no concerns. A Pfannenstiel skin incision was made with a knife and taken down to the underlying layer of fascia with the knife and Bovie electrocautery. Bleeding was attended to with the Bovie. The fascia was incised in the midline with the knife and taken out laterally with scissors. The superior edge of the fascial incision was grasped, elevated and the underlying layer of rectus muscle was taken off bluntly and with scissors. In a similar fashion, the inferior edge of the fascial incision was grasped, elevated and the underlying layer of rectus muscle was taken off bluntly and with scissors. The muscles were bluntly in the midline. The peritoneum was entered bluntly. The incision was then stretched. The bladder blade was placed. The vesicouterine peritoneum was identified, entered with scissors and taken out laterally with scissors. The bladder flap was created digitally A hysterotomy incision was scored with a knife and the incision was stretched superiorly and inferiorly with the o perator's fingers. The operators hand was placed into the incision and the head was delivered atraumatically. No nuchal cord. The nose and mouth were bulb suctioned. the rest of the was then delivered without difficulty. The nose and mouth were again bulb suctioned. The cord was clamped and cut and the infant was then handed off to the awaiting director of perioperative services for drying and attention. Cord blood and segment were obtained. The placenta was Manually extracted. The uterus was exteriorized and cleared of all clot and debris with moistened laparotomy sponges. The hysterotomy incision was repaired in two layers, the first in a running locked layer, the second in an imbricating layer. Two additional sutures were needed for hemostasis. Hemostasis was noted to be good. Posterior cul-de-sac was irrigated and cleared of all clot and debris. The hysterotomy incision was again inspected and found to be hemostatic. the uterus was reinteriorized. Hysterotomy incision was a gain inspected and found to be hemostatic. The fascia was then reapproximated with 0 Vicryl starting at the edges and meeting in the midline. The subcuticular tissues were copiously irrigated and bleeding was attended to with cautery. The skin was then closed with 4-0 Vicryl in a subcuticular fashion. All sponge, lap and needle counts were correct x 2. The patient was taken to the recovery room in stable condition. The uterus was somewhat boggy and was treated with dilute pitocin and IM hemobate into the uterus. QBL--[id number] I attest to the content of the Intraoperative Record and any orders documented therein. Any exceptions are noted below. OB Procedure Charges 68046
[2024-04-08] MEDS ORDERED: SENNA 8.6 MG TAB PO PRN (00:18)
[2024-04-08] MEDS ORDERED: MAGNESIUM HYDROXIDE SUSP 30 ML UDC PO PRN (00:18)
[2024-04-08] MEDS ORDERED: CALCIUM CARBONATE 500 MG CHEWABLE TAB PO PRN (00:18)
[2024-04-08] MEDS ORDERED: BENZOCAINE 20% SPRY 85 APPLN/85 GM CAN EXT PRN (00:18)
[2024-04-08] MEDS ORDERED: HYDROCORTISONE ACETATE 25 MG SUPP PR PRN (00:18)
[2024-04-08] MEDS: LACTATED RINGER'S 1,000 ML IV SCH (00:21)
[2024-04-08] MEDS: MoRPHine SULFATE PF 1 MG/ML 10 ML AMP/VIAL EPI ONE (00:22)
[2024-04-08] MEDS: SODIUM CHLORIDE 0.9% 1,000 ML IV SCH (00:22)
[2024-04-08] MEDS: AZITHROMYCIN 500 MG in DEXTROSE 5% 250 ML IV ONE (00:24)
[2024-04-08] MEDS: OXYTOCIN 20 UNITS/LR 1,002 ML IV SCH (00:30)
[2024-04-08] MEDS: DIPHTHER/TETAN/PERTUS Vaccine (Tdap, Adol/Adult) 0.5mL IM ONE (00:38)
[2024-04-08] MEDS: ACETAMINOPHEN 325 MG TAB PO SCH (00:42)
[2024-04-08] MEDS: IBUPROFEN 600 MG TAB PO SCH (00:43)
[2024-04-08] MEDS: KETOROLAC 30 MG/ML VIAL IV SCH (02:52)
--- NOTE | 2024-04-08 06:36 | Anesthesiology Progress Note ---
Date of Service April 08, 2024 Anesthesia Post Procedure Vital Signs Vital Signs: Temp Pulse Pulse Resp BP BP Pulse Ox 04/08/24 05:23 16 96 04/08/24 04:00 16 96 04/08/24 03:59 16 96 04/08/24 02:54 37 C 88 18 115/78 97 04/08/24 02:50 16 96 04/08/24 02:09 85 96 04/08/24 02:06 88 117/73 04/08/24 02:05 37.0 C 18 04/08/24 02:04 83 96 04/08/24 01:59 96 H 95 04/08/24 01:56 86 111/72 04/08/24 01:54 81 95 04/08/24 01:49 86 96 04/08/24 01:46 85 110/70 04/08/24 01:44 81 94 04/08/24 01:39 85 95 04/08/24 01:37 86 109/70 04/08/24 01:35 37.1 C 18 04/08/24 01:34 82 95 04/08/24 01:29 82 95 04/08/24 01:26 80 114/69 04/08/24 01:24 88 95 04/08/24 01:19 87 95 04/08/24 01:17 81 106/63 04/08/24 01:14 84 95 04/08/24 01:09 86 94 04/08/24 01:06 85 108/68 04/08/24 01:05 37.1 C 18 04/08/24 01:05 37.1 C 18 04/08/24 01:04 84 95 04/08/24 00:59 90 95 04/08/24 00:56 83 113/69 04/08/24 00:55 37.5 C 18 04/08/24 00:54 93 H 94 04/08/24 00:49 89 95 04/08/24 00:46 91 H 109/68 04/08/24 00:45 37.5 C 18 04/08/24 00:44 93 H 95 04/08/24 00:39 91 H 94 04/08/24 00:36 87 106/65 04/08/24 00:35 37.5 C 18 04/08/24 00:34 89 94 04/08/24 00:29 94 H 94 08/30/24 00:26 94 H 109/66 04/08/24 00:25 37.5 C 18 04/08/24 00:24 95 04/08/24 00:24 91 H 04/08/24 00:24 94 H 94 04/08/24 00:19 95 H 96 04/08/24 00:17 96 H 114/65 04/08/24 00:15 37.5 C 18 04/08/24 00:14 99 H 95 04/08/24 00:11 95 H 94 04/08/24 00:09 102 H 97 04/08/24 00:05 37.5 C 18 04/08/24 00:04 101 H 97 04/08/24 00:03 105 H 136/78 04/07/24 23:01 78 143/86 H 04/07/24 23:00 95 H 100 04/07/24 22:56 101 H 92 04/07/24 22:55 96 H 98 04/07/24 22:50 126 H 99 04/07/24 22:45 116 H 99 04/07/24 22:42 96 H 163/98 H 04/07/24 22:40 108 H 100 04/07/24 22:38 85 160/95 H 04/07/24 22:35 98 H 98 04/07/24 22:30 87 99 04/07/24 22:25 92 H 99 04/07/24 22:20 84 99 04/07/24 22:15 95 H 99 04/07/24 22:10 99 04/07/24 22:10 101 H 04/07/24 22:10 95 H 138/95 04/07/24 22:05 105 H 99 04/07/24 22:00 93 H 99 04/07/24 21:55 110 H 99 04/07/24 21:54 96 H 140/99 04/07/24 21:50 80 99 04/07/24 21:45 88 98 04/07/24 21:40 78 99 04/07/24 21:39 81 183/92 H 04/07/24 21:35 84 99 04/07/24 21:33 78 170/84 H 04/07/24 21:30 79 98 04/07/24 21:25 82 185/84 H 98 04/07/24 21:20 78 99 04/07/24 21:15 78 98 04/07/24 21:10 71 99 04/07/24 21:05 79 98 04/07/24 21:01 18 04/07/24 21:01 36.9 C 18 04/07/24 21:00 88 98 04/07/24 20:55 77 99 04/07/24 20:52 77 164/91 H 04/07/24 20:50 77 99 04/07/24 20:49 83 192/107 H 04/07/24 20:45 89 99 04/07/24 20:40 81 99 04/07/24 20:35 99 04/07/24 20:35 86 04/07/24 20:35 87 182/104 H 04/07/24 20:30 81 98 04/07/24 20:25 68 98 04/07/24 20:20 71 99 04/07/24 20:19 70 157/77 H 04/07/24 20:15 78 99 04/07/24 20:10 72 99 04/07/24 20:05 82 98 04/07/24 20:04 78 04/07/24 20:04 151/95 H 04/07/24 20:04 78 157/89 H 04/07/24 20:00 85 99 04/07/24 19:55 82 99 04/07/24 19:50 85 167/90 H 100 04/07/24 19:45 83 99 04/07/24 19:40 85 99 04/07/24 19:36 82 160/87 H 04/07/24 19:35 83 98 04/07/24 19:34 86 181/103 H 04/07/24 19:30 93 H 100 04/07/24 19:25 76 99 04/07/24 19:20 81 100 04/07/24 19:15 86 100 04/07/24 19:10 36.8 C 18 04/07/24 19:10 36.8 C 89 18 99 04/07/24 19:05 91 H 99 04/07/24 19:00 96 H 99 04/07/24 18:55 97 H 99 04/07/24 18:50 82 99 04/07/24 18:30 18 04/07/24 18:30 18 04/07/24 18:03 72 148/81 H 04/07/24 17:59 82 99 04/07/24 17:55 74 179/103 H 04/07/24 17:54 75 99 04/07/24 17:49 76 99 04/07/24 17:44 75 99 04/07/24 17:39 84 100 04/07/24 17:38 73 182/105 H 04/07/24 17:34 79 99 04/07/24 17:30 18 04/07/24 17:30 18 04/07/24 17:29 76 99 04/07/24 17:24 79 97 04/07/24 17:23 77 159/92 H 04/07/24 17:19 82 99 04/07/24 17:14 81 99 04/07/24 17:09 84 98 04/07/24 17:08 86 143/84 H 04/07/24 17:04 74 99 04/07/24 16:59 76 98 04/07/24 16:54 79 99 04/07/24 16:53 70 145/80 H 04/07/24 16:49 77 100 04/07/24 16:44 76 100 04/07/24 16:39 70 99 04/07/24 16:38 67 146/83 H 04/07/24 16:34 66 99 04/07/24 16:30 18 04/07/24 16:30 18 04/07/24 16:29 71 99 04/07/24 16:24 67 100 04/07/24 16:23 71 156/74 H 04/07/24 16:19 74 100 04/07/24 16:14 79 99 04/07/24 16:09 75 100 04/07/24 16:08 75 150/75 H 04/07/24 16:04 74 100 04/07/24 15:59 75 100 04/07/24 15:54 76 142/90 H 100 04/07/24 15:49 81 100 04/07/24 15:44 79 100 04/07/24 15:39 79 100 04/07/24 15:38 73 148/97 H 04/07/24 15:34 76 99 04/07/24 15:29 76 100 04/07/24 15:24 84 142/91 H 99 04/07/24 15:19 73 98 04/07/24 15:14 105 H 100 04/07/24 15:09 68 98 04/07/24 15:08 72 122/73 04/07/24 15:04 66 99 04/07/24 15:00 18 04/07/24 15:00 18 04/07/24 14:59 78 100 04/07/24 14:54 111 H 99 04/07/24 14:49 82 99 04/07/24 14:44 78 98 04/07/24 14:39 76 98 04/07/24 14:38 68 160/98 H 04/07/24 14:34 78 98 04/07/24 14:29 78 99 04/07/24 14:24 79 98 04/07/24 14:23 73 140/83 04/07/24 14:19 73 99 04/07/24 14:14 77 99 04/07/24 14:09 78 99 04/07/24 14:08 71 171/101 H 04/07/24 14:04 71 99 04/07/24 13:59 88 100 04/07/24 13:54 74 98 04/07/24 13:49 79 100 04/07/24 13:44 77 99 04/07/24 13:39 73 100 04/07/24 13:34 68 99 04/07/24 13:29 66 99 04/07/24 13:27 18 04/07/24 13:27 36.6 C 18 04/07/24 13:24 79 100 04/07/24 13:23 59 L 130/81 04/07/24 13:19 60 98 04/07/24 13:14 60 98 04/07/24 13:09 67 98 04/07/24 13:08 57 L 149/72 H 04/07/24 13:04 65 98 04/07/24 12:59 59 L 98 04/07/24 12:55 71 142/86 H 04/07/24 12:54 76 100 04/07/24 12:49 67 100 04/07/24 12:44 68 100 04/07/24 12:39 99 04/07/24 12:39 67 04/07/24 12:39 62 152/85 H 04/07/24 12:34 71 99 04/07/24 12:29 74 100 04/07/24 12:24 75 138/91 99 04/07/24 12:19 71 99 04/07/24 12:14 69 100 04/07/24 12:09 66 150/92 H 99 04/07/24 12:04 69 100 04/07/24 11:59 69 99 04/07/24 11:54 71 100 04/07/24 11:49 69 99 04/07/24 11:44 71 99 04/07/24 11:39 70 98 04/07/24 11:37 63 153/86 H 04/07/24 11:34 70 99 04/07/24 11:29 73 99 04/07/24 11:24 68 100 04/07/24 11:23 71 162/100 H 04/07/24 11:19 69 100 04/07/24 11:14 71 100 04/07/24 11:09 68 100 04/07/24 11:08 70 159/97 H 04/07/24 11:04 66 100 04/07/24 10:59 79 99 04/07/24 10:55 65 154/84 H 04/07/24 10:54 65 99 04/07/24 10:49 68 99 04/07/24 10:44 67 100 04/07/24 10:39 70 155/84 H 99 04/07/24 10:34 70 100 04/07/24 10:30 18 04/07/24 10:30 18 04/07/24 10:29 71 99 04/07/24 10:24 64 99 04/07/24 10:23 67 137/86 04/07/24 10:19 69 99 04/07/24 10:14 65 99 04/07/24 10:09 62 98 04/07/24 10:08 61 142/81 H 04/07/24 10:04 69 99 04/07/24 10:00 36.6 C 04/07/24 09:59 67 98 04/07/24 09:54 99 04/07/24 09:54 65 04/07/24 09:54 65 137/81 04/07/24 09:49 66 98 04/07/24 09:44 66 99 04/07/24 09:39 68 99 04/07/24 09:38 69 141/84 H 04/07/24 09:34 69 99 04/07/24 09:30 18 04/07/24 09:30 18 04/07/24 09:29 69 100 04/07/24 09:24 99 04/07/24 09:24 74 04/07/24 09:24 71 140/93 04/07/24 09:19 68 99 04/07/24 09:14 70 100 04/07/24 09:09 70 176/100 H 98 04/07/24 09:04 69 99 04/07/24 08:59 73 99 04/07/24 08:54 66 100 04/07/24 08:53 66 169/94 H 04/07/24 08:49 66 98 04/07/24 08:44 65 99 04/07/24 08:39 70 99 04/07/24 08:34 80 98 04/07/24 08:29 72 98 04/07/24 08:24 75 98 04/07/24 08:23 67 144/94 H 04/07/24 08:19 68 95 04/07/24 08:14 66 96 04/07/24 08:09 97 04/07/24 08:09 66 04/07/24 08:09 65 142/87 H 04/07/24 08:04 62 97 04/07/24 08:00 18 04/07/24 08:00 18 04/07/24 07:59 61 99 04/07/24 07:54 64 97 04/07/24 07:53 59 L 139/84 04/07/24 07:49 61 96 04/07/24 07:44 62 98 04/07/24 07:39 98 04/07/24 07:39 62 04/07/24 07:39 62 151/87 H 04/07/24 07:34 62 99 04/07/24 07:29 67 98 04/07/24 07:24 66 99 04/07/24 07:20 36.8 C 18 04/07/24 07:19 63 98 04/07/24 07:14 18 04/07/24 07:14 36.7 C 18 04/07/24 07:14 99 04/07/24 07:14 63 04/07/24 07:14 63 143/95 H 04/07/24 07:08 86 98 04/07/24 07:03 67 99 04/07/24 06:58 70 100 04/07/24 06:57 64 160/91 H 04/07/24 06:53 68 98 04/07/24 06:48 61 100 04/07/24 06:46 18 04/07/24 06:46 18 04/07/24 06:43 64 99 04/07/24 06:41 65 139/89 04/07/24 06:38 63 98 O2 Del Method 04/08/24 05:23 04/08/24 04:00 04/08/24 03:59 04/08/24 02:54 Room Air 04/08/24 02:50 04/08/24 02:09 04/08/24 02:06 04/08/24 02:05 04/08/24 02:04 04/08/24 01:59 04/08/24 01:56 04/08/24 01:54 04/08/24 01:49 04/08/24 01:46 04/08/24 01:44 04/08/24 01:39 04/08/24 01:37 04/08/24 01:35 04/08/24 01:34 04/08/24 01:29 04/08/24 01:26 04/08/24 01:24 04/08/24 01:19 04/08/24 01:17 04/08/24 01:14 04/08/24 01:09 04/08/24 01:06 04/08/24 01:05 04/08/24 01:05 04/08/24 01:04 04/08/24 00:59 04/08/24 00:56 04/08/24 00:55 04/08/24 00:54 04/08/24 00:49 04/08/24 00:46 04/08/24 00:45 04/08/24 00:44 04/08/24 00:39 04/08/24 00:36 04/08/24 00:35 04/08/24 00:34 04/08/24 00:29 04/08/24 00:26 04/08/24 00:25 04/08/24 00:24 04/08/24 00:24 04/08/24 00:24 04/08/24 00:19 04/08/24 00:17 04/08/24 00:15 04/08/24 00:14 04/08/24 00:11 04/08/24 00:09 04/08/24 00:05 04/08/24 00:04 04/08/24 00:03 04/07/24 23:01 04/07/24 23:00 04/07/24 22:56 04/07/24 22:55 04/07/24 22:50 04/07/24 22:45 04/07/24 22:42 04/07/24 22:40 04/07/24 22:38 04/07/24 22:35 04/07/24 22:30 04/07/24 22:25 04/07/24 22:20 04/07/24 22:15 04/07/24 22:10 04/07/24 22:10 04/07/24 22:10 04/07/24 22:05 04/07/24 22:00 04/07/24 21:55 04/07/24 21:54 04/07/24 21:50 04/07/24 21:45 04/07/24 21:40 04/07/24 21:39 04/07/24 21:35 04/07/24 21:33 04/07/24 21:30 04/07/24 21:25 04/07/24 21:20 04/07/24 21:15 04/07/24 21:10 04/07/24 21:05 04/07/24 21:01 04/07/24 21:01 04/07/24 21:00 04/07/24 20:55 04/07/24 20:52 04/07/24 20:50 04/07/24 20:49 04/07/24 20:45 04/07/24 20:40 04/07/24 20:35 04/07/24 20:35 04/07/24 20:35 04/07/24 20:30 04/07/24 20:25 04/07/24 20:20 04/07/24 20:19 04/07/24 20:15 04/07/24 20:10 04/07/24 20:05 04/07/24 20:04 04/07/24 20:04 04/07/24 20:04 04/07/24 20:00 04/07/24 19:55 04/07/24 19:50 04/07/24 19:45 04/07/24 19:40 04/07/24 19:36 04/07/24 19:35 04/07/24 19:34 04/07/24 19:30 04/07/24 19:25 04/07/24 19:20 04/07/24 19:15 04/07/24 19:10 04/07/24 19:10 04/07/24 19:05 04/07/24 19:00 04/07/24 18:55 04/07/24 18:50 04/07/24 18:30 04/07/24 18:30 04/07/24 18:03 04/07/24 17:59 04/07/24 17:55 04/07/24 17:54 04/07/24 17:49 04/07/24 17:44 04/07/24 17:39 04/07/24 17:38 04/07/24 17:34 04/07/24 17:30 04/07/24 17:30 04/07/24 17:29 04/07/24 17:24 04/07/24 17:23 04/07/24 17:19 04/07/24 17:14 04/07/24 17:09 04/07/24 17:08 04/07/24 17:04 04/07/24 16:59 04/07/24 16:54 04/07/24 16:53 04/07/24 16:49 04/07/24 16:44 04/07/24 16:39 04/07/24 16:38 04/07/24 16:34 04/07/24 16:30 04/07/24 16:30 04/07/24 16:29 04/07/24 16:24 04/07/24 16:23 04/07/24 16:19 04/07/24 16:14 04/07/24 16:09 04/07/24 16:08 04/07/24 16:04 04/07/24 15:59 04/07/24 15:54 04/07/24 15:49 04/07/24 15:44 04/07/24 15:39 04/07/24 15:38 04/07/24 15:34 04/07/24 15:29 04/07/24 15:24 04/07/24 15:19 04/07/24 15:14 04/07/24 15:09 04/07/24 15:08 04/07/24 15:04 04/07/24 15:00 04/07/24 15:00 04/07/24 14:59 04/07/24 14:54 04/07/24 14:49 04/07/24 14:44 04/07/24 14:39 04/07/24 14:38 04/07/24 14:34 04/07/24 14:29 04/07/24 14:24 04/07/24 14:23 04/07/24 14:19 04/07/24 14:14 04/07/24 14:09 04/07/24 14:08 04/07/24 14:04 04/07/24 13:59 04/07/24 13:54 04/07/24 13:49 04/07/24 13:44 04/07/24 13:39 04/07/24 13:34 04/07/24 13:29 04/07/24 13:27 04/07/24 13:27 04/07/24 13:24 04/07/24 13:23 04/07/24 13:19 04/07/24 13:14 04/07/24 13:09 04/07/24 13:08 04/07/24 13:04 04/07/24 12:59 04/07/24 12:55 04/07/24 12:54 04/07/24 12:49 04/07/24 12:44 04/07/24 12:39 04/07/24 12:39 04/07/24 12:39 04/07/24 12:34 04/07/24 12:29 04/07/24 12:24 04/07/24 12:19 04/07/24 12:14 04/07/24 12:09 04/07/24 12:04 04/07/24 11:59 04/07/24 11:54 04/07/24 11:49 04/07/24 11:44 04/07/24 11:39 04/07/24 11:37 04/07/24 11:34 04/07/24 11:29 04/07/24 11:24 04/07/24 11:23 04/07/24 11:19 04/07/24 11:14 04/07/24 11:09 04/07/24 11:08 04/07/24 11:04 04/07/24 10:59 04/07/24 10:55 04/07/24 10:54 04/07/24 10:49 04/07/24 10:44 04/07/24 10:39 04/07/24 10:34 04/07/24 10:30 04/07/24 10:30 04/07/24 10:29 04/07/24 10:24 04/07/24 10:23 04/07/24 10:19 04/07/24 10:14 04/07/24 10:09 04/07/24 10:08 04/07/24 10:04 04/07/24 10:00 04/07/24 09:59 04/07/24 09:54 04/07/24 09:54 04/07/24 09:54 04/07/24 09:49 04/07/24 09:44 04/07/24 09:39 04/07/24 09:38 04/07/24 09:34 04/07/24 09:30 04/07/24 09:30 04/07/24 09:29 04/07/24 09:24 04/07/24 09:24 04/07/24 09:24 04/07/24 09:19 04/07/24 09:14 04/07/24 09:09 04/07/24 09:04 04/07/24 08:59 04/07/24 08:54 04/07/24 08:53 04/07/24 08:49 04/07/24 08:44 04/07/24 08:39 04/07/24 08:34 04/07/24 08:29 04/07/24 08:24 04/07/24 08:23 04/07/24 08:19 04/07/24 08:14 04/07/24 08:09 04/07/24 08:09 04/07/24 08:09 04/07/24 08:04 04/07/24 08:00 04/07/24 08:00 04/07/24 07:59 04/07/24 07:54 04/07/24 07:53 04/07/24 07:49 04/07/24 07:44 04/07/24 07:39 04/07/24 07:39 04/07/24 07:39 04/07/24 07:34 04/07/24 07:29 04/07/24 07:24 04/07/24 07:20 04/07/24 07:19 04/07/24 07:14 04/07/24 07:14 04/07/24 07:14 04/07/24 07:14 04/07/24 07:14 04/07/24 07:08 04/07/24 07:03 04/07/24 06:58 04/07/24 06:57 04/07/24 06:53 04/07/24 06:48 04/07/24 06:46 04/07/24 06:46 04/07/24 06:43 04/07/24 06:41 04/07/24 06:38 Pain Intensity Abdomen: Pain Intensity: 2 Notes Mental Status: alert / awake / arousable Patient Amnestic to Procedure: Yes Nausea / Vomiting: adequately controlled Pain: adequately controlled Airway Patency, RR, SpO2: stable & adequate BP & HR: stable & adequate Hydration State: stable & adequate Neuraxial Anesthesia: was administered and sensory block is resolving Anesthetic Complications: no major complications apparent
--- NOTE | 2024-04-08 07:26 | Obstetrical Progress Note ---
Date of Service April 08, 2024 Assessment & Plan (1) S/P section: Plan Doing well. has dangled. Edmondson out, yet to void Routine care. Day #:: 0 Subjective Ambulation: limited ambulation Voiding: edmondson catheter in place (just came out) Passing Gas:: No Diet Tolerance:: regular diet Lochia:: Small Feeding Type:: breast feeding Sitting in bed and starting to breastfeed. Physical Exam Constitutional WD/WN, vitals as above Cardiovascular Extremities: no calf tenderness and no edema Gastrointestinal (Abdomen) soft, nt, nd dressing c/d/i ff/appro tender Psychiatric A+Ox3, euthymic affect Results & Data Vital Signs (Past 12 Hours) Vital Signs Temp Pulse Pulse Resp BP BP Pulse Ox 04/08/24 05:23 16 96 04/08/24 04:00 16 96 04/08/24 03:59 16 96 04/08/24 02:54 37 C 88 18 115/78 97 04/08/24 02:50 16 96 04/08/24 02:09 85 96 04/08/24 02:06 88 117/73 04/08/24 02:05 37.0 C 18 04/08/24 02:04 83 96 04/08/24 01:59 96 H 95 04/08/24 01:56 86 111/72 04/08/24 01:54 81 95 04/08/24 01:49 86 96 04/08/24 01:46 85 110/70 04/08/24 01:44 81 94 04/08/24 01:39 85 95 04/08/24 01:37 86 109/70 04/08/24 01:35 37.1 C 18 04/08/24 01:34 82 95 04/08/24 01:29 82 95 04/08/24 01:26 80 114/69 04/08/24 01:24 88 95 04/08/24 01:19 87 95 04/08/24 01:17 81 106/63 04/08/24 01:14 84 95 04/08/24 01:09 86 94 04/08/24 01:06 85 108/68 04/08/24 01:05 37.1 C 18 04/08/24 01:05 37.1 C 18 04/08/24 01:04 84 95 04/08/24 00:59 90 95 04/08/24 00:56 83 113/69 04/08/24 00:55 37.5 C 18 04/08/24 00:54 93 H 94 04/08/24 00:49 89 95 04/08/24 00:46 91 H 109/68 04/08/24 00:45 37.5 C 18 04/08/24 00:44 93 H 95 04/08/24 00:39 91 H 94 04/08/24 00:36 87 106/65 04/08/24 00:35 37.5 C 18 04/08/24 00:34 89 94 04/08/24 00:29 94 H 94 04/08/24 00:26 94 H 109/66 04/08/24 00:25 37.5 C 18 04/08/24 00:24 95 04/08/24 00:24 91 H 04/08/24 00:24 94 H 94 04/08/24 00:19 95 H 96 04/08/24 00:17 96 H 114/65 04/08/24 00:15 37.5 C 18 04/08/24 00:14 99 H 95 04/08/24 00:11 95 H 94 04/08/24 00:09 102 H 97 04/08/24 00:05 37.5 C 18 04/08/24 00:04 101 H 97 04/08/24 00:03 105 H 136/78 04/07/24 23:01 78 143/86 H 04/07/24 23:00 95 H 100 04/07/24 22:56 101 H 92 04/07/24 22:55 96 H 98 04/07/24 22:50 126 H 99 04/07/24 22:45 116 H 99 04/07/24 22:42 96 H 163/98 H 04/07/24 22:40 108 H 100 04/07/24 22:38 85 160/95 H 04/07/24 22:35 98 H 98 04/07/24 22:30 87 99 04/07/24 22:25 92 H 99 04/07/24 22:20 84 99 04/07/24 22:15 95 H 99 04/07/24 22:10 99 04/07/24 22:10 101 H 04/07/24 22:10 95 H 138/95 04/07/24 22:05 105 H 99 04/07/24 22:00 93 H 99 04/07/24 21:55 110 H 99 04/07/24 21:54 96 H 140/99 04/07/24 21:50 80 99 04/07/24 21:45 88 98 04/07/24 21:40 78 99 04/07/24 21:39 81 183/92 H 04/07/24 21:35 84 99 04/07/24 21:33 78 170/84 H 04/07/24 21:30 79 98 04/07/24 21:25 82 185/84 H 98 04/07/24 21:20 78 99 04/07/24 21:15 78 98 04/07/24 21:10 71 99 04/07/24 21:05 79 98 04/07/24 21:01 18 04/07/24 21:01 36.9 C 18 04/07/24 21:00 88 98 04/07/24 20:55 77 99 04/07/24 20:52 77 164/91 H 04/07/24 20:50 77 99 04/07/24 20:49 83 192/107 H 04/07/24 20:45 89 99 04/07/24 20:40 81 99 04/07/24 20:35 99 04/07/24 20:35 86 04/07/24 20:35 87 182/104 H 04/07/24 20:30 81 98 04/07/24 20:25 68 98 04/07/24 20:20 71 99 04/07/24 20:19 70 157/77 H 04/07/24 20:15 78 99 04/07/24 20:10 72 99 04/07/24 20:05 82 98 04/07/24 20:04 78 04/07/24 20:04 151/95 H 04/07/24 20:04 78 157/89 H 04/07/24 20:00 85 99 04/07/24 19:55 82 99 04/07/24 19:50 85 167/90 H 100 04/07/24 19:45 83 99 04/07/24 19:40 85 99 04/07/24 19:36 82 160/87 H 04/07/24 19:35 83 98 04/07/24 19:34 86 181/103 H 04/07/24 19:30 93 H 100 04/07/24 19:25 76 99 O2 Del Method 04/08/24 05:23 04/08/24 04:00 04/08/24 03:59 04/08/24 02:54 Room Air 04/08/24 02:50 04/08/24 02:09 04/08/24 02:06 04/08/24 02:05 04/08/24 02:04 04/08/24 01:59 04/08/24 01:56 04/08/24 01:54 04/08/24 01:49 04/08/24 01:46 04/08/24 01:44 04/08/24 01:39 04/08/24 01:37 04/08/24 01:35 04/08/24 01:34 04/08/24 01:29 04/08/24 01:26 04/08/24 01:24 04/08/24 01:19 04/08/24 01:17 04/08/24 01:14 04/08/24 01:09 04/08/24 01:06 04/08/24 01:05 04/08/24 01:05 04/08/24 01:04 04/08/24 00:59 04/08/24 00:56 04/08/24 00:55 04/08/24 00:54 04/08/24 00:49 04/08/24 00:46 04/08/24 00:45 04/08/24 00:44 04/08/24 00:39 04/08/24 00:36 04/08/24 00:35 04/08/24 00:34 04/08/24 00:29 04/08/24 00:26 04/08/24 00:25 04/08/24 00:24 04/08/24 00:24 04/08/24 00:24 04/08/24 00:19 04/08/24 00:17 04/08/24 00:15 04/08/24 00:14 04/08/24 00:11 04/08/24 00:09 04/08/24 00:05 04/08/24 00:04 04/08/24 00:03 04/07/24 23:01 04/07/24 23:00 04/07/24 22:56 04/07/24 22:55 04/07/24 22:50 04/07/24 22:45 04/07/24 22:42 04/07/24 22:40 04/07/24 22:38 04/07/24 22:35 04/07/24 22:30 04/07/24 22:25 04/07/24 22:20 04/07/24 22:15 04/07/24 22:10 04/07/24 22:10 04/07/24 22:10 04/07/24 22:05 04/07/24 22:00 04/07/24 21:55 04/07/24 21:54 04/07/24 21:50 04/07/24 21:45 04/07/24 21:40 04/07/24 21:39 04/07/24 21:35 04/07/24 21:33 04/07/24 21:30 04/07/24 21:25 04/07/24 21:20 04/07/24 21:15 04/07/24 21:10 04/07/24 21:05 04/07/24 21:01 04/07/24 21:01 04/07/24 21:00 04/07/24 20:55 04/07/24 20:52 04/07/24 20:50 04/07/24 20:49 04/07/24 20:45 04/07/24 20:40 04/07/24 20:35 04/07/24 20:35 04/07/24 20:35 04/07/24 20:30 04/07/24 20:25 04/07/24 20:20 04/07/24 20:19 04/07/24 20:15 04/07/24 20:10 04/07/24 20:05 04/07/24 20:04 04/07/24 20:04 04/07/24 20:04 04/07/24 20:00 04/07/24 19:55 04/07/24 19:50 04/07/24 19:45 04/07/24 19:40 04/07/24 19:36 04/07/24 19:35 04/07/24 19:34 04/07/24 19:30 04/07/24 19:25
[2024-04-08] MEDS: DOCUSATE SODIUM 100 MG CAP PO SCH (08:42)
[2024-04-08] MEDS: SIMETHICONE 80 MG CHEW PO SCH (08:42)
[2024-04-08] MEDS: FERROUS SULFATE 325 MG TAB PO SCH (08:42)
[2024-04-08] MEDS: PRENATAL VITAMIN 1 TAB PO SCH (08:42)
[2024-04-08] MEDS ORDERED: LACTATED RINGER'S 1,000 ML IV SCH (16:30)
[2024-04-08] MEDS ORDERED: diphenhydrAMINE Capsule 25 MG CAP PO PRN (17:33)
[2024-04-08] MEDS ORDERED: oxyCODONE HCL IR 5 MG TAB (IMMEDIATE RELEASE) PO PRN (17:33)
[2024-04-08] MEDS ORDERED: diphenhydrAMINE 50 MG/ML VIAL IV PRN (17:33)
[2024-04-08] MEDS ORDERED: PROMETHAZINE 12.5 MG/50.5 ML BAG IV PRN (17:33)
[2024-04-08] MEDS ORDERED: HYDROmorphone INJ 0.5 MG/0.5 ML SYR IV PRN (17:33)
[2024-04-08] MEDS ORDERED: ONDANSETRON INJ 2 MG/ML 2 ML VIAL IV PRN (17:33)
--- NOTE | 2024-04-09 06:15 | Obstetrical Progress Note ---
Date of Service April 09, 2024 Assessment & Plan (1) care and examination: (2) S/P section: Plan stable, doing well. await hgb. c/w diet, ambulation. po pain control. breast feeding, rhpos, ri. delivered right before mn on . Day #:: 2 Subjective Ambulation: ambulating normally Voiding: no voiding problems Passing Gas:: Yes Diet Tolerance:: regular diet Lochia:: Small Feeding Type:: breast feeding denies pain issues, not using any oxycodone. Constitutional: + as per Subjective / HPI Physical Exam Constitutional WD/WN, vitals as above Respiratory normal respiratory effort, lungs clear to auscultation Cardiovascular Rate/Rhythm: regular rate and regular rhythm Gastrointestinal (Abdomen) Inspection/Auscultation: abdomen normal to inspection and + abdominal surgical incision (c/d/i with steris) Percussion/Palpation: abdomen soft Fundus firm 1cm down Musculoskeletal nt calves +1 edema Neurologic grossly normal Psychiatric A+Ox3, euthymic affect Results & Data Vital Signs (Past 12 Hours) Vital Signs Temp Pulse Resp BP Pulse Ox O2 Del Method 04/08/24 23:40 97.7 F 85 18 112/76 96 Room Air 04/08/24 20:55 96.8 F L 80 20 113/75 97 Room Air 04/08/24 18:55 20 100
[2024-04-09 06:41] LABS: Basophils # (auto) 0.03 K/uL (0.00-0.20); Basophils % (auto) 0.2 %; Eosinophils # (auto) 0.27 K/uL (0.00-0.50); Eosinophils % (auto) 1.7 %; Hematocrit (blood only) 22.2 % (37.0-47.0); Hemoglobin 7.6 g/dl (12.0-16.0); Immature Granulocytes # (auto) 0.21 K/uL (0.01-0.20); Immature Granulocytes % (auto) 1.3 %; Lymphocytes # (auto) 1.67 K/uL (1.20-3.40); Lymphocytes % (auto) 10.5 %; Mean Corpuscular Hemoglobin 30.5 pg (25.0-34.0); Mean Corpuscular Hgb Conc 34.2 g/dL (32.0-36.0); Mean Corpuscular Volume 89.2 fL (80.0-100.0); Mean Platelet Volume 10.5 fL (9.4-12.4); Monocytes # (auto) 0.71 K/uL (0.11-0.59); Monocytes % (auto) 4.5 %; Neutrophils # (auto) 13.05 K/uL (1.40-6.50); Neutrophils % (auto) 81.8 %; Platelet Count 149 K/uL (130-400); RDW Coefficient of Variation 14.5 % (11.5-14.5); RDW Standard Deviation 46.6 fL (36.4-46.3); Red Blood Count 2.49 M/uL (4.20-5.40); White Blood Count 15.94 K/ul (4.8-10.8)
[2024-04-09 07:01] LABS: RBC Morphology Unremarkable
[2024-04-09] MEDS: bisacodyL 5 MG TABEC PO SCH (20:52)
[2024-04-10] MEDS ORDERED: bisacodyL 10 MG SUPP PR PRN (00:03)
[2024-04-10 06:56] LABS: Hematocrit (blood only) 21.1 % (37.0-47.0); Hemoglobin 7.3 g/dl (12.0-16.0)
[2024-04-10 07:49] VITALS: RESP 20; TEMP 97.5; O2SAT 97
--- NOTE | 2024-04-10 08:55 | Obstetrical Progress Note ---
Date of Service April 10, 2024 Assessment & Plan (1) care and examination: Postoperative from section patient meets discharge criteria as she is ambulating well tolerating an oral diet has minimal bleeding and no extremity pain. Discharge instructions were reviewed and prescriptions were sent to her pharmacy of choice patient advised to call with any concerns and follow-up in the office discussed Subjective Ambulation: ambulating normally Voiding: no voiding problems Passing Gas:: Yes Diet Tolerance:: regular diet Lochia:: Small Feeding Type:: breast feeding Physical Exam Constitutional WD/WN, vitals as above well developed and well nourished Respiratory normal respiratory effort, lungs clear to auscultation normal respiratory effort Cardiovascular RRR, no murmur, no edema Gastrointestinal (Abdomen) normal bowel sounds, soft, nontender, no hepatosplenomegaly Results & Data Vital Signs (Past 12 Hours) Vital Signs Temp Pulse Resp BP BP Pulse Ox O2 Del Method 04/10/24 07:15 97.5 F L 90 20 135/87 97 Room Air 04/10/24 00:55 98.1 F 84 16 113/81 96 Room Air 04/09/24 20:45 98.1 F 100 H 18 121/72 98 Room Air
[2024-04-10] MEDS: ACETAMINOPHEN 325 MG TAB PO PRN (09:00)
[2024-04-10] MEDS: IBUPROFEN 600 MG TAB PO PRN (09:00)
[2024-04-10 11:32] VITALS: BP 113/81; PULSE 88
--- NOTE | 2024-04-12 08:39 | Discharge Summary ---
Date of Service April 12, 2024 Admission HPI Per Admitting Provider 28yo G1 at 39 3/7 wga presents after dx w/ SROM. Lost mucous plug around 7am and then leaking consistently starting around 10-11am. Seen in office and rom confirmed, 1cm at that time. 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 Then started pitocin. She progressed very slowly. Eventually required IUPC and by the time that was placed was found to be adequate. She progressed to 9/100/-2. She stayed with that exam for 4 hours. The baby never had an descent throughout the entire labor. Recommended c/s. Patient had low transverse c/s without issues. QBL was 1884cc. Her postoperative course was uncomplicated. She tolerated a regular diet, ambulated without difficulty, voided after removal of her [place] and had her pain controlled with oral pain meds. Her d/c h/h was 7.3/12.1. She tolerated that h/h and did not require transfusion. She was d/c on 04/10. She will f/u in 6 weeks for pp visit. Coding Level of Care Code None Diagnoses S/P section Z98.891 SROM (spontaneous rupture of membranes)
== END 2024-04-10 16:00 | disposition home or self-care (01) | DRG 788 ==
LOC: OPB 16:55 → 4S1 16:58 → 4E2 04-08 02:48
DX: Z91.018 Allergy to other foods; Z37.0 Single live birth; O62.1 Secondary uterine inertia; O66.40 Failed trial of labor, unspecified; Z3A.39 39 weeks gestation of pregnancy; Z91.013 Allergy to seafood; O34.13 Maternal care for benign tumor of corpus uteri, third trimester; O24.429 Gestational diabetes mellitus in childbirth, unspecified control